=== PATIENT | female | born 1970 | race American Indian/Alaskan Native ===

== ENCOUNTER 2016-11-15 07:15 | Emergency (ER) | payer OTHER | END 2016-11-15 12:23 | disposition home or self-care (01) | LOC: C.ER 07:15 | CPT/HCPCS: 70450; 80053; 80324; 80345; 80346; 80349; 80353; 80358; 80361; 81001; 82550; 82553; 82948; 83992; 84484; 84702; 84703; 85025; 96374; 99284; J1200 ==

== ENCOUNTER 2016-11-15 14:38 | Emergency (ER) | payer OTHER | END 2016-11-15 16:15 | disposition home or self-care (01) | LOC: C.ER 14:38 ==